=== PATIENT | male | born 1970 | race African-American/Black ===

== ENCOUNTER 2020-05-14 22:45 | Emergency (ER) | payer OTHER ==
--- NOTE | 2020-05-14 23:28 | RAD ---
Exam:3 views left ankle HISTORY: Pain, x3 days. Swelling. COMPARISON: None FINDINGS: Intact ankle mortise. Preserved joint spaces. No fracture. No significant soft tissue swell ing IMPRESSION: No radiographic abnormality.
[2020-05-15] MEDS ORDERED: Ondansetron ODT 8 MG TAB ONE (01:25)
[2020-05-15] MEDS ORDERED: Ibuprofen 800 MG TAB ONE (01:58)
== END 2020-05-15 02:20 | disposition home or self-care (01) ==
LOC: ERS 22:45
DX: S80.12XA Contusion of left lower leg, initial encounter (principal); W19.XXXA Unspecified fall, initial encounter; Z79.899 Other long term (current) drug therapy; I10 Essential (primary) hypertension
CPT/HCPCS: 94760; Q0162

== ENCOUNTER 2020-05-17 08:06 | Emergency (ER) | payer OTHER ==
[2020-05-17] MEDS ORDERED: Ketorolac Tromethamine 30 MG/ML VIAL ONE (08:23)
== END 2020-05-17 08:45 | disposition home or self-care (01) ==
LOC: ERS 08:06
DX: S80.12XA Contusion of left lower leg, initial encounter (principal)
CPT/HCPCS: 96372; 99283; J1885

== ENCOUNTER 2022-06-12 16:10 | Emergency (ER) | payer SELFPAY ==
[2022-06-12] MEDS ORDERED: HYDROcodone/Acetaminophen 10/325 mg Tablet ONE (16:51)
== END 2022-06-12 17:40 | disposition home or self-care (01) ==
LOC: ERS 16:10
DX: S90.31XA Contusion of right foot, initial encounter (principal); S50.01XA Contusion of right elbow, initial encounter; I10 Essential (primary) hypertension; X50.9XXA Other and unspecified overexertion or strenuous movements or postures, initial encounter

== ENCOUNTER 2022-07-26 07:16 | Emergency (ER) | payer OTHER, SELFPAY ==
[2022-07-26] MEDS ORDERED: Ketorolac Tromethamine 30 MG/ML VIAL ONE (08:10)
[2022-07-26 09:02] LABS: #Eosinphils 0.1 thou/uL (0.0-0.7); #Lymphocytes 1.9 thou/uL (1.20-3.40); #Monocytes 0.7 thou/uL (0.11-0.59); #Neutrophils 4.9 thou/uL (1.40-6.50); %Basophils 0.6 % (0.0-1.0); %Eosinophils 0.9 % (0.0-10.0); %Lymphocytes 25.2 % (21.0-51.0); %Monocytes 9.2 % (0.0-10.0); %Neutrophils 64.1 % (42.0-75.0); Hemoglobin 14.1 g/dL (14.0-18.0); Mean Corpuscular HGB CONC 32.8 g/dL (32.0-36.0); Mean Corpuscular Hemoglobin 33.1 pg (27.0-31.0); Mean Platelet Volume 8.2 fL (7.4-10.4); Platelet Count 210 10x3/uL (130-400); RBC Distribution Width 12.3 % (11.5-14.5); Red Blood Cell (RBC) Count 4.28 mill/uL (4.70-6.10); White Blood Cell (WBC) Count 7.7 10x3/uL (4.8-10.8)
[2022-07-26 09:18] LABS: INR-International Normal Ratio 0.9; PTT 27.6 sec (22.9-36.1); Prothrombin Time 11.9 sec (12.0-14.7)
[2022-07-26 09:41] LABS: ALT (SGPT) 18 U/L (8-55); AST (SGOT) 22 U/L (5-34); Alkaline Phosphatase 58 U/L (40-110); Anion Gap 11 mmol/L (10-20); BUN (Urea Nitrogen) 11 mg/dL (8.9-20.6); Bilirubin, Total 0.3 mg/dL (0.2-1.2); Calc. Creatinine Clearance 0 mL/min (70-130); Calcium 8.8 mg/dL (7.8-10.44); Carbon Dioxide 25 mmol/L (22-29); Chloride 108 mmol/L (98-107); Estimated GFR 78; Globulin 2.6 g/dL (2.4-3.5); Glucose 102 mg/dL (70-105); Potassium 4.2 mmol/L (3.5-5.1); Protein, Total 6.6 g/dL (6.0-8.3); Sodium 140 mmol/L (136-145)
[2022-07-26] MEDS ORDERED: Orphenadrine Citrate 60 MG/2 ML VIAL ONE (10:07)
[2022-07-26] MEDS ORDERED: Iopamidol-370 76% 500 ML 1 ML ONE (13:43)
== END 2022-07-26 10:35 | disposition home or self-care (01) ==
LOC: ERS 07:16
DX: S33.5XXA Sprain of ligaments of lumbar spine, initial encounter (principal); S23.3XXA Sprain of ligaments of thoracic spine, initial encounter; I10 Essential (primary) hypertension; V43.52XA Car driver injured in collision with other type car in traffic accident, initial encounter; Y92.410 Unspecified street and highway as the place of occurrence of the external cause
CPT/HCPCS: 36415; 70450; 71260; 72125; 74177; 76380; 80053; 84484; 85025; 85610; 85730; 86850; 86900; 86901; 93005; 96374; 96375; G0390; J1885; J2360

== ENCOUNTER 2023-02-05 15:30 | Emergency (ER) | payer BC, SELFPAY ==
[2023-02-05] MEDS ORDERED: Morphine 4 MG/ML VIAL ONE ×2 (16:58→19:38)
[2023-02-05] MEDS ORDERED: Ketorolac Tromethamine 30 MG/ML VIAL ONE (16:59)
[2023-02-05] MEDS ORDERED: Ondansetron PF 4 MG/2 ML Vial ONE (16:59)
[2023-02-05] MEDS ORDERED: Labetalol HCl 100 MG/20 ML VIAL ONE ×2 (16:59→17:00)
[2023-02-05 17:07] LABS: Bacteria/HPF None Seen HPF (None Seen); Bilirubin Negative (Negative); Blood, Urine Negative (Negative); CAUTI Indications for Culture Alt mental st,lethar; Clarity Clear (Clear); Glucose, Urine (Dipstick) Normal (Negative); Ketone, Urine Negative (Negative); Leukocyte Negative Leu/uL (Negative); Nitrite Negative (Negative); Protein, Urine (Dipstick) Negative (Neg-Trace); RBC/HPF 0-3 HPF (0-3); Specific Gravity, Urine 1.012 (1.002-1.036); Squamous Epithelial None Seen HPF (0-3); Urobilinogen Normal mg/dL (Less than 2); WBC/HPF None Seen HPF (0-3)
[2023-02-05 17:08] LABS: Urine Culture Reflex No No
[2023-02-05 17:36] LABS: #Eosinphils 0.2 thou/uL (0.0-0.7); #Monocytes 0.7 thou/uL (0.11-0.59); #Neutrophils 8.7 thou/uL (1.40-6.50); %Basophils 0.4 % (0.0-1.0); %Eosinophils 1.5 % (0.0-10.0); %Lymphocytes 13.4 % (21.0-51.0); %Monocytes 6.2 % (0.0-10.0); %Neutrophils 78.1 % (42.0-75.0); Hematocrit 49.9 % (42.0-52.0); Hemoglobin 16.5 g/dL (14.0-18.0); Mean Corpuscular HGB CONC 33.1 g/dL (32.0-36.0); Mean Corpuscular Hemoglobin 32.1 pg (27.0-31.0); Mean Corpuscular Volume 97.1 fl (78.0-98.0); Mean Platelet Volume 11.1 fL (7.4-10.4); Platelet Count 230 10x3/uL (130-400); RBC Distribution Width 13.5 % (11.5-14.5); Red Blood Cell (RBC) Count 5.14 mill/uL (4.70-6.10); White Blood Cell (WBC) Count 11.1 10x3/uL (4.8-10.8)
[2023-02-05 18:07] LABS: ALT (SGPT) 40 U/L (8-55); AST (SGOT) 45 U/L (5-34); Albumin 4.6 g/dL (3.5-5.0); Alkaline Phosphatase 65 U/L (40-110); Anion Gap 14 mmol/L (10-20); BUN (Urea Nitrogen) 11 mg/dL (8.9-20.6); Bilirubin, Total 0.4 mg/dL (0.2-1.2); Calc. Creatinine Clearance 0 mL/min (70-130); Calcium 9.8 mg/dL (7.8-10.44); Carbon Dioxide 28 mmol/L (22-29); Chloride 102 mmol/L (98-107); Estimated GFR 62; Globulin 3.9 g/dL (2.4-3.5); Glucose 89 mg/dL (70-105); Potassium 4.2 mmol/L (3.5-5.1); Protein, Total 8.5 g/dL (6.0-8.3); Sodium 140 mmol/L (136-145); Troponin I Less than 0.010 ng/mL (< 0.028)
== END 2023-02-05 20:24 | disposition home or self-care (01) ==
LOC: ERS 15:30
DX: R51.9 Headache, unspecified (principal); K08.89 Other specified disorders of teeth and supporting structures; I10 Essential (primary) hypertension; Z79.899 Other long term (current) drug therapy
CPT/HCPCS: 70450; 70498; 71045; 80053; 81001; 84484; 85025; 93005; 94760; 96374; 96375; 96376; J1885; J2270; J2405